=== PATIENT | female | born 1930 | race Caucasian/White ===

== ENCOUNTER 2016-10-26 17:51 | Inpatient (IN) | payer OTHER ==
[~2016-10-26] VITALS: Ht 157.5 cm; Wt 82.9 kg
[2016-10-26] MEDS ORDERED: SODIUM CHLORIDE FLUSH 10ML SYR IVF ONE (18:30)
[2016-10-26] MEDS ORDERED: CEFTRIAXONE PMX 1GM/50ML 50 ML IV ONE (18:30)
[2016-10-26] MEDS ORDERED: AMLO10TA4 PO (18:58)
[2016-10-26] MEDS ORDERED: BENA5TAB2 PO (18:58)
[2016-10-26 19:00] LABS: HEMOGLOBIN 10.1 g/dL (11.7-16.4)
[2016-10-26] MEDS ORDERED: CEFTRIAXONE PMX 1GM/50ML 50 ML ONE (19:05)
[2016-10-26 19:16] LABS: ASPARTATE AMINO TRANSFERASE 12 U/L (15-37); BLOOD UREA NITROGEN 18 mg/dL (7-18)
[2016-10-26 19:21] LABS: IS PT STATUS REG ER OR PRE ER? YES
[2016-10-26] MEDS ORDERED: OMNIPAQUE 350 MG/ML, 100ML BOTTLE ONE (19:51)
[2016-10-26] MEDS ORDERED: ALBUTEROL/IPRATROPIUM 2.5MG/0.5MG, 3 ML NPPB ONE (20:30)
[2016-10-26] MEDS ORDERED: ALBUTEROL/IPRATROPIUM 2.5MG/0.5MG, 3 ML ONE (20:36)
[2016-10-26] MEDS: DOXYCYCLINE 100 MG in DEXTROSE 5% 250 ML IV SCH (22:24)
[2016-10-26] MEDS: SODIUM CHLORIDE 0.9% 1,000 ML IV SCH (22:26)
[2016-10-26] MEDS ORDERED: DOCUSATE 100 MG CAPSULE PO PRN (22:30)
[2016-10-26] MEDS ORDERED: POLYETHYLENE GLYCOL 17 GM PACKET PO PRN (22:30)
[2016-10-26] MEDS ORDERED: BISACODYL 10 MG SUPP PR PRN (22:30)
[2016-10-26 22:50] VITALS: BP 145/66
[2016-10-26] MEDS: ACETAMINOPHEN 325 MG TABLET PO PRN (23:39)
[2016-10-27] MEDS ORDERED: SODIUM PHOSPHATE 20 MMOL in SODIUM CHLORIDE 0.9% 500 ML IV ONE (01:30)
[2016-10-27 01:44] VITALS: BP 129/79
[2016-10-27 05:08] LABS: HEMOGLOBIN 9.4 g/dL (11.7-16.4)
[2016-10-27 05:17] LABS: BLOOD UREA NITROGEN 22 mg/dL (7-18)
[2016-10-27] MEDS: HEPARIN 5,000 UNITS/ML, 1ML SQ SCH ×3 (05:32→21:57)
[2016-10-27 06:40] VITALS: BP 115/57
[2016-10-27] MEDS: AMLODIPINE 5 MG TABLET PO SCH (08:25)
[2016-10-27] MEDS ORDERED: AMLODIPINE BESYLATE 20 MG PO SCH (09:00)
[2016-10-27] MEDS ORDERED: AMLODIPINE 5 MG TABLET PO SCH (09:00)
[2016-10-27] MEDS: DOXYCYCLINE 100 MG in DEXTROSE 5% 250 ML IV SCH ×2 (10:03→21:31)
[2016-10-27 12:38] VITALS: BP 127/77
[2016-10-27] MEDS: HYDROcodone/CHLORPHENIR ORAL SUSP PO PRN (15:55)
[2016-10-27] MEDS: BENZONATATE 100 MG CAPSULE PO SCH ×2 (16:00→21:00)
[2016-10-27] MEDS: SODIUM CHLORIDE 0.9% 1,000 ML IV SCH (18:12)
[2016-10-27 18:36] VITALS: BP 110/58
[2016-10-27] MEDS ORDERED: CEFTRIAXONE PMX 1GM/50ML 50 ML IV SCH (19:00)
[2016-10-27] MEDS: CEFTRIAXONE PMX 1GM/50ML 50 ML IV SCH (19:54)
[2016-10-28 01:47] VITALS: BP 144/76
[2016-10-28 05:02] LABS: HEMOGLOBIN 9.2 g/dL (11.7-16.4)
[2016-10-28] MEDS: HEPARIN 5,000 UNITS/ML, 1ML SQ SCH ×3 (05:09→21:35)
[2016-10-28 05:24] LABS: BLOOD UREA NITROGEN 23 mg/dL (7-18)
[2016-10-28 06:52] VITALS: BP 121/71
[2016-10-28] MEDS: CEFTRIAXONE PMX 1GM/50ML 50 ML IV SCH ×2 (07:17→19:20)
[2016-10-28] MEDS: BENZONATATE 100 MG CAPSULE PO SCH ×3 (09:00→21:00)
[2016-10-28] MEDS: AMLODIPINE 5 MG TABLET PO SCH (09:54)
[2016-10-28] MEDS: GUAIFENESIN ER 600 MG TABLET PO SCH ×2 (09:54→21:35)
[2016-10-28] MEDS: DOXYCYCLINE 100 MG in DEXTROSE 5% 250 ML IV SCH ×2 (09:54→21:34)
[2016-10-28 13:34] VITALS: BP 119/66
[2016-10-28 20:07] VITALS: BP 138/75
[2016-10-28] MEDS: HYDROcodone/CHLORPHENIR ORAL SUSP PO PRN (22:13)
[2016-10-29 00:26] VITALS: BP 158/74
[2016-10-29 05:16] LABS: BLOOD UREA NITROGEN 20 mg/dL (7-18)
[2016-10-29 06:04] LABS: DIFF TOTAL CELLS COUNTED 100 CELL DIFF
[2016-10-29] MEDS: HEPARIN 5,000 UNITS/ML, 1ML SQ SCH ×3 (06:06→22:28)
[2016-10-29 06:07] LABS: VERIFY COUNTS? YES
[2016-10-29 06:41] VITALS: BP 120/69
[2016-10-29] MEDS: BENZONATATE 100 MG CAPSULE PO SCH ×3 (08:41→22:21)
[2016-10-29] MEDS: AMLODIPINE 5 MG TABLET PO SCH (08:41)
[2016-10-29] MEDS: CEFTRIAXONE PMX 1GM/50ML 50 ML IV SCH ×2 (08:41→19:39)
[2016-10-29] MEDS: GUAIFENESIN ER 600 MG TABLET PO SCH ×2 (08:41→22:21)
[2016-10-29] MEDS: DOXYCYCLINE 100 MG in DEXTROSE 5% 250 ML IV SCH ×2 (10:23→22:21)
[2016-10-29 12:56] VITALS: BP 129/70
[2016-10-29 19:33] VITALS: BP 159/59
[2016-10-29] MEDS: ACETAMINOPHEN 325 MG TABLET PO PRN (19:38)
[2016-10-30 00:35] VITALS: BP 158/84
[2016-10-30] MEDS: HEPARIN 5,000 UNITS/ML, 1ML SQ SCH ×2 (05:35→14:00)
[2016-10-30 07:14] VITALS: BP 152/75
[2016-10-30] MEDS: CEFTRIAXONE PMX 1GM/50ML 50 ML IV SCH (07:57)
[2016-10-30] MEDS: AMLODIPINE 5 MG TABLET PO SCH (07:57)
[2016-10-30] MEDS: GUAIFENESIN ER 600 MG TABLET PO SCH (07:57)
[2016-10-30] MEDS: BENZONATATE 100 MG CAPSULE PO SCH ×2 (07:57→16:00)
[2016-10-30] MEDS: DOXYCYCLINE 100 MG in DEXTROSE 5% 250 ML IV SCH (10:59)
[2016-10-30 14:00] VITALS: BP 130/72
[2016-10-30] MEDS ORDERED: CEFD300C2 PO (15:05)
[2016-10-30] MEDS ORDERED: DOXY100T PO (15:05)
== END 2016-10-30 16:50 | disposition home or self-care (01) | DRG 682 ==
LOC: ED 19:54 → EDIP 20:36 → 3NE 21:21
PROVIDERS: ADMIT Internal Medicine
DX: N17.0 Acute kidney failure with tubular necrosis (principal); J18.9 Pneumonia, unspecified organism; J96.01 Acute respiratory failure with hypoxia; D64.9 Anemia, unspecified; E83.39 Other disorders of phosphorus metabolism; I25.10 Atherosclerotic heart disease of native coronary artery without angina pectoris; K44.9 Diaphragmatic hernia without obstruction or gangrene; N28.1 Cyst of kidney, acquired; B95.7 Other staphylococcus as the cause of diseases classified elsewhere; Z80.3 Family history of malignant neoplasm of breast; Z82.49 Family history of ischemic heart disease and other diseases of the circulatory system; I12.9 Hypertensive chronic kidney disease with stage 1 through stage 4 chronic kidney disease, or unspecified chronic kidney disease; N18.2 Chronic kidney disease, stage 2 (mild)
CPT/HCPCS: 36415; 71020; 71260; 74177; 80048; 80076; 82040; 83605; 83735; 83880; 84100; 84443; 84484; 85025; 85610; 85730; 87040; 87205; 93005; 94640; 96365; J0696; J1644; J7060; Q9967; J7030; J7040

== ENCOUNTER 2018-08-29 01:24 | Inpatient (IN) | payer MEDICARE, OTHER ==
[~2018-08-29] VITALS: Ht 157.5 cm; Wt 82.9 kg
[~2018-08-29 01:24] MED LIST: AMLO10TA4 PO; BENA5TAB3 PO; CEFD300C37 PO; DOXY100T PO
[2018-08-29 02:17] LABS: BASOPHILS # (AUTO) 0.03 x10^3/uL (0-0.1); BASOPHILS % (AUTO) 1 % (0-1); EOSINOPHILS # (AUTO) 0.18 x10^3/uL (0-0.4); EOSINOPHILS % (AUTO) 4 % (1-7); LYMPHOCYTES # (AUTO) 1.55 x10^3/uL (1-3.4); LYMPHOCYTES % (AUTO) 32 % (22-44); MD NO; MEAN CORPUSCULAR HEMOGLOBIN 30.1 pg (27.0-34.8); MEAN CORPUSCULAR HGB CONC 33.4 g/dL (32.4-35.8); MEAN CORPUSCULAR VOLUME 90.1 fL (80-100); MEAN PLATELET VOLUME 8.4 fL (7.4-10.4); MONOCYTES # (AUTO) 0.61 x10^3/uL (0.2-0.8); MONOCYTES % (AUTO) 13 % (2-9); NEUTROPHILS # (AUTO) 2.43 x10^3/uL (1.8-6.8); NEUTROPHILS % (AUTO) 51 % (42-75); PLATELET COUNT 159 x10^3/uL (130-400); RED BLOOD COUNT 3.86 x10^6/uL (3.82-5.3); RED CELL DISTRIBUTION WIDTH 14.6 % (9.6-15.2)
--- NOTE | 2018-08-29 02:18 | NUR ---
PT REPORTS TONIGHT SHE FELT A SHARP PAIN IN HER RIGHT ARM AND SHE SAT DOWN ON THE GROUND. THE PAIN WENT IN BETWEEN HER SHOULDER BLADES. THE PAIN HAS NOW RESOLVED. FAMILY ALSO REPORTS THAT THE PT RECENTLY FINISHED ABX FOR A UTI. VS STABLE. 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 NSR NOTED. CALL LIGHT IN PLACE. WILL CONTINUE TO MONITOR.
[2018-08-29 02:25] LABS: MICROSCOPIC AUTO
[2018-08-29 02:28] LABS: CULTURE INDICATED? YES
[2018-08-29 02:29] LABS: ALANINE AMINOTRANSFERASE 13 U/L (12-78); ANION GAP 8 mmol/L (5-15); CALCIUM 9.1 mg/dL (8.5-10.1); CHLORIDE 111 mmol/L (98-107); CREATININE 1.63 mg/dL (0.55-1.02)
[2018-08-29 02:33] LABS: ALKALINE PHOSPHATASE 74 U/L (45-117); BILIRUBIN,TOTAL 0.3 mg/dL (0.2-1.0); TOTAL PROTEIN 7.3 g/dL (6.4-8.2); TROPONIN I 0.046 ng/mL (0.000-0.045)
--- NOTE | 2018-08-29 02:53 | NUR ---
PT VISITING WITH FAMILY AT BEDSIDE. NO ACUTE DISTRESS NOTED. CALL LIGHT IN PLACE. WILL CONTINUE TO MONITOR.
[2018-08-29] MEDS ORDERED: ASPIRIN 81 MG TABLET CHEW PO ONE (03:30)
[2018-08-29] MEDS ORDERED: CEFTRIAXONE PMX 1GM/50ML 50 ML IV ONE (03:30)
[2018-08-29] MEDS ORDERED: ASPIRIN 81 MG TABLET CHEW ONE ×2 (03:31→03:32)
--- NOTE | 2018-08-29 03:31 | NUR ---
DR FLETCHER HAS UPDATED PATIENT. PATIENT TO BE AN ADMIT
[2018-08-29] MEDS ORDERED: CEFTRIAXONE PMX 1GM/50ML 50 ML ONE (03:49)
--- NOTE | 2018-08-29 03:55 | NUR ---
NO BLOOD CULTURES NEEDED PER DR FLETCHER
[2018-08-29 04:42] VITALS: BP 158/73
[2018-08-29] MEDS ORDERED: NITROGLYCERIN 0.4 MG BOTTLE (25 TABS) SL PRN (05:00)
[2018-08-29] MEDS ORDERED: morphine SULFATE 10 MG/ML, 1ML IVPush PRN (05:00)
[2018-08-29] MEDS ORDERED: TEMAZEPAM 15 MG CAPSULE PO PRN (05:00)
[2018-08-29] MEDS ORDERED: LABETALOL 5MG/ML, 20ML IVPush PRN (05:00)
[2018-08-29] MEDS ORDERED: ACETAMINOPHEN 325 MG TABLET PO PRN (05:00)
[2018-08-29] MEDS ORDERED: ONDANSETRON ODT 4 MG PO PRN (05:00)
[2018-08-29] MEDS ORDERED: ONDANSETRON 2MG/ML, 2ML IVPush PRN (05:00)
[2018-08-29] MEDS: ASPIRIN 325 MG TABLET EC PO SCH (07:24)
[2018-08-29] MEDS ORDERED: REGADENOSON 0.4 MG/5 ML SYRINGE ONE (07:45)
[2018-08-29 08:24] VITALS: BP 148/74
[2018-08-29] MEDS ORDERED: HEPARIN 5,000 UNITS/ML, 1ML IV ONE (08:30)
[2018-08-29] MEDS ORDERED: HEPARIN 25,000 UNITS/500ML PMX 500 ML IV PRN (08:30)
[2018-08-29 08:32] VITALS: BP 148/74
[2018-08-29 08:36] LABS: CHOL/HDL RATIO 3.7; LDL/HDL RATIO 2.3 (0.5-3.0)
[2018-08-29 09:19] LABS: HEMOGLOBIN A1C 5.5 % (4.2-6.3)
[2018-08-29] MEDS: AMLODIPINE 5 MG TABLET PO SCH (10:01)
[2018-08-29] MEDS: BENAZEPRIL 20 MG TABLET PO SCH (10:01)
[2018-08-29 13:35] VITALS: BP 125/71
[2018-08-29] MEDS: HEPARIN 5,000 UNITS/ML, 1ML IV PRN (16:36)
[2018-08-29 18:27] VITALS: BP 121/78
[2018-08-29] MEDS: CARVEDILOL 3.125 MG TABLET PO SCH (18:27)
[2018-08-29 18:57] VITALS: BP 114/68
[2018-08-29] MEDS: ATORVASTATIN 40 MG TABLET PO SCH (19:55)
[2018-08-30 00:40] VITALS: BP 143/70
[2018-08-30] MEDS: CEFTRIAXONE PMX 1GM/50ML 50 ML IV SCH (04:33)
[2018-08-30 05:53] LABS: CHOL/HDL RATIO 3.3
[2018-08-30] MEDS: HEPARIN 5,000 UNITS/ML, 1ML IV PRN (06:42)
[2018-08-30] MEDS: CARVEDILOL 3.125 MG TABLET PO SCH ×2 (06:43→18:36)
[2018-08-30] MEDS: ASPIRIN 325 MG TABLET EC PO SCH (06:43)
[2018-08-30 07:00] VITALS: BP 153/78
[2018-08-30] MEDS: AMLODIPINE 5 MG TABLET PO SCH (08:14)
[2018-08-30] MEDS: BENAZEPRIL 20 MG TABLET PO SCH (08:15)
[2018-08-30] MEDS ORDERED: REGADENOSON 0.4 MG/5 ML SYRINGE ONE (08:52)
[2018-08-30] MEDS: CLOPIDOGREL 75 MG TABLET PO SCH (13:42)
[2018-08-30 15:44] VITALS: BP 107/58
[2018-08-30 15:46] VITALS: BP 119/69
[2018-08-30 15:48] VITALS: BP 123/78
[2018-08-30 20:15] VITALS: BP 136/75
[2018-08-30] MEDS: ATORVASTATIN 40 MG TABLET PO SCH (20:51)
[2018-08-31 01:26] VITALS: BP 125/73
[2018-08-31] MEDS: CEFTRIAXONE PMX 1GM/50ML 50 ML IV SCH (03:43)
[2018-08-31] MEDS: ASPIRIN 81 MG TABLET EC PO SCH (05:18)
[2018-08-31] MEDS: CARVEDILOL 3.125 MG TABLET PO SCH ×2 (05:21→16:06)
[2018-08-31 08:01] VITALS: BP 122/69
[2018-08-31] MEDS ORDERED: BENAZEPRIL 10 MG TABLET ONE (08:12)
[2018-08-31] MEDS: CLOPIDOGREL 75 MG TABLET PO SCH (08:14)
[2018-08-31] MEDS: BENAZEPRIL 20 MG TABLET PO SCH (08:14)
[2018-08-31] MEDS: AMLODIPINE 5 MG TABLET PO SCH ×3 (08:14→20:04)
[2018-08-31 08:46] VITALS: BP 149/87
[2018-08-31] MEDS ORDERED: SODIUM CHLORIDE 0.9% 1,000 ML IV SCH (11:00)
[2018-08-31 12:19] LABS: ANION GAP 7 mmol/L (5-15); CALCIUM 9.1 mg/dL (8.5-10.1); CHLORIDE 111 mmol/L (98-107)
[2018-08-31 12:24] LABS: CREATININE 1.34 mg/dL (0.55-1.02); TROPONIN I 0.624 ng/mL (0.000-0.045)
[2018-08-31] MEDS ORDERED: FENTANYL PF 100 MCG/2ML ONE (14:14)
[2018-08-31] MEDS ORDERED: MIDAZOLAM 1 MG/ML, 2ML ONE (14:14)
[2018-08-31] MEDS ORDERED: LIDOCAINE 1%, 20ML ONE (14:15)
[2018-08-31] MEDS ORDERED: VERAPAMIL 2.5 MG/ML, 2ML ONE (14:15)
[2018-08-31 15:04] VITALS: BP 122/71
[2018-08-31] MEDS: SODIUM CHLORIDE 0.9% 1,000 ML IV SCH ×2 (15:33→20:04)
[2018-08-31 20:01] VITALS: BP 144/69
[2018-08-31] MEDS: ATORVASTATIN 40 MG TABLET PO SCH (20:04)
[2018-09-01 01:50] VITALS: BP 110/56
[2018-09-01 01:52] VITALS: BP 131/76
[2018-09-01 01:54] VITALS: BP 137/85
[2018-09-01] MEDS: CEFTRIAXONE PMX 1GM/50ML 50 ML IV SCH (03:30)
[2018-09-01 04:44] LABS: CHLORIDE 113 mmol/L (98-107)
[2018-09-01 04:48] LABS: ANION GAP 8 mmol/L (5-15); CALCIUM 8.4 mg/dL (8.5-10.1); CREATININE 1.43 mg/dL (0.55-1.02)
[2018-09-01] MEDS: ASPIRIN 81 MG TABLET EC PO SCH (06:11)
[2018-09-01] MEDS: CARVEDILOL 3.125 MG TABLET PO SCH (06:11)
[2018-09-01 08:44] VITALS: BP 145/85
[2018-09-01] MEDS ORDERED: SULFAMETH./TRIMETHOPRIM DS 800MG/160MG TABLET PO SCH (09:00)
[2018-09-01] MEDS: AMLODIPINE 5 MG TABLET PO SCH (09:30)
[2018-09-01] MEDS: CLOPIDOGREL 75 MG TABLET PO SCH (09:31)
[2018-09-01] MEDS: BENAZEPRIL 20 MG TABLET PO SCH (09:32)
[2018-09-01] MEDS ORDERED: CARV3.1212 PO (13:06)
[2018-09-01] MEDS ORDERED: ASPI81TA45 PO (13:06)
[2018-09-01] MEDS ORDERED: AMLO-150 PO (13:06)
[2018-09-01] MEDS ORDERED: NITR0.4T SL (13:06)
[2018-09-01] MEDS ORDERED: SULF-169 PO (13:08)
[2018-09-01] MEDS ORDERED: ATOR40TA78 PO (13:08)
[2018-09-01] MEDS ORDERED: CLOP75TA PO (13:08)
[2018-09-01 13:29] VITALS: BP 141/83
== END 2018-09-01 14:49 | disposition home or self-care (01) | DRG 280 ==
LOC: ED 02:27 → EDIP 03:40 → 5SO 04:22 → DCLOUNGE 09-01 14:48
PROVIDERS: ADMIT Internal Medicine; ATTEND Internal Medicine
PROC: 4A023N7 Measurement of Cardiac Sampling and Pressure, Left Heart, Percutaneous Approach (ICD-10-PCS; principal; 2018-08-31)
PROC: B2111ZZ Fluoroscopy of Multiple Coronary Arteries using Low Osmolar Contrast (ICD-10-PCS; 2018-08-31)
DX: I21.4 Non-ST elevation (NSTEMI) myocardial infarction (principal); N17.0 Acute kidney failure with tubular necrosis; N39.0 Urinary tract infection, site not specified; I82.611 Acute embolism and thrombosis of superficial veins of right upper extremity; B96.20 Unspecified Escherichia coli [E. coli] as the cause of diseases classified elsewhere; D64.9 Anemia, unspecified; I13.10 Hypertensive heart and chronic kidney disease without heart failure, with stage 1 through stage 4 chronic kidney disease, or unspecified chronic kidney disease; K44.9 Diaphragmatic hernia without obstruction or gangrene; Z87.891 Personal history of nicotine dependence; R55 Syncope and collapse
CPT/HCPCS: 36415; 71045; 78452; 80048; 80053; 80061; 81001; 83036; 84484; 85025; 85520; 87077; 87086; 87186; 90656; 93005; 93017; 93306; 93458; 96374; 99156; 99285; C1760; C1769; C1894; G0378; J0696; J1644; J2250; J2785; J3010; J3490; A9502; C9898; J7030; Q9967

== ENCOUNTER → 2019-08-01 | Outpatient (CLI) | payer MEDICARE ==
[~2019-08-01] MED LIST changes: +AMLO-150 PO; +ASPI81TA45 PO; +ATOR40TA78 PO; +CARV3.1212 PO; +CLOP75TA PO; +NITR0.4T41 SL; +SULF-169 PO
== END | disposition home or self-care (01) ==
LOC: RAD 08:54
PROVIDERS: ATTEND Nurse Practitioner Family
DX: K76.0 Fatty (change of) liver, not elsewhere classified (principal); N28.1 Cyst of kidney, acquired
CPT/HCPCS: 76700

== ENCOUNTER 2019-08-09 13:16 | Outpatient (CLI) | payer MEDICARE ==
[2019-08-09] MEDS ORDERED: MELA1TAB15 PO (17:58)
[2019-08-09] MEDS ORDERED: HYDR-3240 PO (17:58)
[2019-08-09] MEDS ORDERED: AMLO-150 PO (17:58)
== END 2019-08-09 23:59 | disposition home or self-care (01) ==
LOC: CFH 13:16
PROVIDERS: ATTEND Nurse Practitioner Family
DX: N18.9 Chronic kidney disease, unspecified (principal); R74.8 Abnormal levels of other serum enzymes; R94.5 Abnormal results of liver function studies; R11.0 Nausea; R19.7 Diarrhea, unspecified; R63.4 Abnormal weight loss
CPT/HCPCS: 74176

== ENCOUNTER 2019-08-09 13:56 | Inpatient (IN) | payer MEDICARE ==
[~2019-08-09] VITALS: Ht 157.5 cm; Wt 74.2 kg
[2019-08-09 15:52] LABS: CULTURE INDICATED? NO; MICROSCOPIC NOT IND
[2019-08-09] MEDS ORDERED: SODIUM CHLORIDE 0.9% 1,000 ML IV ONE (16:06)
--- NOTE | 2019-08-09 16:36 | NUR ---
Piv placed with one attempt by this RN.
[2019-08-09 16:37] LABS: MEAN CORPUSCULAR HEMOGLOBIN 28.3 pg (27.0-34.8); MEAN CORPUSCULAR HGB CONC 32.6 g/dL (32.4-35.8); MEAN CORPUSCULAR VOLUME 86.7 fL (80-100); PLATELET COUNT 368 x10^3/uL (130-400)
[2019-08-09 16:48] LABS: ALANINE AMINOTRANSFERASE 27 U/L (12-78); ALBUMIN 2.7 g/dL (3.4-5.0); ANION GAP 8 mmol/L (5-15); CALCIUM 8.9 mg/dL (8.5-10.1); CHLORIDE 106 mmol/L (98-107); CREATININE 1.35 mg/dL (0.55-1.02)
[2019-08-09 16:50] LABS: ALKALINE PHOSPHATASE 555 U/L (45-117)
[2019-08-09] MEDS ORDERED: ACETAMINOPHEN 325 MG TABLET PO PRN (17:00)
[2019-08-09] MEDS ORDERED: hydrALAzine 20 MG/ML, 1ML IVPush PRN (17:00)
[2019-08-09] MEDS ORDERED: NITROGLYCERIN SINGLE TAB 0.4 MG SL PRN (17:00)
[2019-08-09] MEDS ORDERED: morphine SULFATE 10 MG/ML, 1ML IVPush PRN (17:00)
[2019-08-09] MEDS ORDERED: ONDANSETRON 2MG/ML, 2ML IVPush PRN (17:00)
[2019-08-09] MEDS ORDERED: ONDANSETRON ODT 4 MG PO PRN (17:00)
--- NOTE | 2019-08-09 17:05 | NUR ---
DR. VUONG, , HERE TO SEE PATIENT.
[2019-08-09 17:25] LABS: MD YES
[2019-08-09 17:27] LABS: LYMPH#(MANUAL) 1.56 x10^3/uL (1-3.4); LYMPHS% (MANUAL) 13 % (22-44); MONOS#(MANUAL) 1.08 x10^3/uL (0.3-2.7); MONOS% (MANUAL) 9 % (2-9); SEG#(MANUAL) 9.36 x10^3/uL (1.8-6.8); SEGS% (MANUAL) 78 % (42-75)
[2019-08-09 17:32] LABS: ANISOCYTOSIS 1+; HYPOCHROMIA 1+; OVALOCYTES 2+; POLYCHROMASIA 1+
[2019-08-09 17:33] LABS: HYPERSEG PMNs 1+
[2019-08-09 17:37] LABS: <PLATELET ESTIMATE> ADEQUATE; <PLT MORPHOLOGY> NORMAL PLT MORPH
[2019-08-09] MEDS ORDERED: MELA1TAB15 PO (17:58)
[2019-08-09] MEDS ORDERED: HYDR-3240 PO (17:58)
[2019-08-09] MEDS ORDERED: AMLO-150 PO (17:58)
[2019-08-09] MEDS: CARVEDILOL 3.125 MG TABLET PO SCH (18:47)
--- NOTE | 2019-08-09 19:29 | NUR ---
REPORT FROM KAMILLE BOYD. VSS. UPDATED FAMILY ON POC. BED RECEIVED. CALL MARCIAL IN REACH.
[2019-08-09 20:00] VITALS: BP 140/72
--- NOTE | 2019-08-09 20:02 | NUR ---
REPROT TO BERNIE RN ON ONC.
[2019-08-09 20:30] VITALS: BP 148/74
[2019-08-09] MEDS: AMLODIPINE 5 MG TABLET PO SCH (21:00)
[2019-08-09] MEDS: ATORVASTATIN 40 MG TABLET PO SCH (21:22)
[2019-08-10] VITALS: BP 169/75
[2019-08-10 05:13] LABS: ANION GAP 8 mmol/L (5-15); CALCIUM 8.4 mg/dL (8.5-10.1); CHLORIDE 106 mmol/L (98-107); CREATININE 1.17 mg/dL (0.55-1.02)
[2019-08-10 05:25] LABS: MEAN CORPUSCULAR HEMOGLOBIN 28.2 pg (27.0-34.8); MEAN CORPUSCULAR HGB CONC 32.7 g/dL (32.4-35.8); MEAN CORPUSCULAR VOLUME 86.4 fL (80-100); MEAN PLATELET VOLUME 8.4 fL (7.4-10.4); PLATELET COUNT 357 x10^3/uL (130-400); RED CELL DISTRIBUTION WIDTH 17.4 % (9.6-15.2)
[2019-08-10 05:52] LABS: MD YES
[2019-08-10 05:53] LABS: ANISOCYTOSIS 1+; EOS#(MANUAL) 0.11 x10^3/uL (0.0-0.4); EOS% (MANUAL) 1 % (1-7); LYMPH#(MANUAL) 1.31 x10^3/uL (1-3.4); LYMPHS% (MANUAL) 12 % (22-44); MONOS#(MANUAL) 1.42 x10^3/uL (0.3-2.7); MONOS% (MANUAL) 13 % (2-9); OVALOCYTES 2+; SEG#(MANUAL) 8.07 x10^3/uL (1.8-6.8); SEGS% (MANUAL) 74 % (42-75)
[2019-08-10 05:55] LABS: ACANTHOCYTES 1+
[2019-08-10 05:57] LABS: SCHISTOCYTES 1+
[2019-08-10 05:58] LABS: <PLATELET ESTIMATE> ADEQUATE; <PLT MORPHOLOGY> NORMAL PLT MORPH; HYPOCHROMIA 1+; POLYCHROMASIA 1+
[2019-08-10] MEDS: CARVEDILOL 3.125 MG TABLET PO SCH ×2 (06:00→18:02)
[2019-08-10] MEDS: ASPIRIN 81 MG TABLET EC PO SCH (06:02)
[2019-08-10] MEDS: BENAZEPRIL 20 MG TABLET PO SCH (07:50)
[2019-08-10] MEDS: AMLODIPINE 5 MG TABLET PO SCH (07:50)
[2019-08-10] MEDS ORDERED: ACETAMINOPHEN 325 MG TABLET PO PRN (08:00)
[2019-08-10 08:33] VITALS: BP 113/69
[2019-08-10] MEDS ORDERED: MOVIPREP POWDER 1 PREP KIT PO SCH (09:00)
[2019-08-10] MEDS: SODIUM CHLORIDE 0.9% 1,000 ML IV SCH (09:25)
[2019-08-10] MEDS ORDERED: MOVIPREP POWDER 1 PREP KIT PO ONE ×2 (12:30→21:00)
[2019-08-10 14:09] VITALS: BP 120/71
[2019-08-10 19:05] VITALS: BP 103/53
[2019-08-10] MEDS: ATORVASTATIN 40 MG TABLET PO SCH (20:52)
[2019-08-11 01:39] VITALS: BP 115/73
[2019-08-11] MEDS: ASPIRIN 81 MG TABLET EC PO SCH (06:00)
[2019-08-11] MEDS: CARVEDILOL 3.125 MG TABLET PO SCH (06:06)
[2019-08-11 06:26] VITALS: BP 117/63
[2019-08-11] MEDS: SODIUM CHLORIDE 0.9% 1,000 ML IV SCH (08:13)
[2019-08-11] MEDS: BENAZEPRIL 20 MG TABLET PO SCH (08:14)
[2019-08-11] MEDS ORDERED: PROPOFOL 10 MG/ML, 20ML ONE (09:48)
[2019-08-11] MEDS ORDERED: ALBUTEROL SULFATE 2.5 MG/3 ML NPPB PRN (10:00)
[2019-08-11] MEDS ORDERED: LABETALOL 5MG/ML, 20ML IV PRN (10:00)
[2019-08-11] MEDS ORDERED: OXYcodone 5 MG/5 ML ORAL.SOL UDC PO PRN (10:00)
[2019-08-11] MEDS ORDERED: PROMETHAZINE 25 MG/ML, 1ML IV PRN (10:00)
[2019-08-11] MEDS ORDERED: HYDROmorphone 2 MG/ML, 1ML IVPush PRN (10:00)
[2019-08-11] MEDS ORDERED: hydrALAzine 20 MG/ML, 1ML IV PRN (10:00)
[2019-08-11] MEDS ORDERED: HALOPERIDOL 5 MG/ML IV PRN (10:00)
[2019-08-11] MEDS ORDERED: FENTANYL PF 100 MCG/2ML IV PRN (10:00)
[2019-08-11 12:23] LABS: % IRON SATURATION 8 % (20-55); ALANINE AMINOTRANSFERASE 26 U/L (12-78); ALBUMIN 2.4 g/dL (3.4-5.0); ANION GAP 8 mmol/L (5-15); CALCIUM 8.6 mg/dL (8.5-10.1); CHLORIDE 112 mmol/L (98-107); CREATININE 1.42 mg/dL (0.55-1.02); IRON LEVEL 18 mcg/dL (50-170); TOTAL IRON BINDING CAPACITY 215 mcg/dL (250-450)
[2019-08-11 12:26] LABS: ALKALINE PHOSPHATASE 536 U/L (45-117); BILIRUBIN,TOTAL 0.5 mg/dL (0.2-1.0); TOTAL PROTEIN 6.6 g/dL (6.4-8.2)
[2019-08-11 15:05] VITALS: BP 120/67
[2019-08-11] MEDS ORDERED: FERROUS SULFATE 325 MG TABLET PO SCH (16:30)
[2019-08-11] MEDS: CARVEDILOL 6.25 MG TABLET PO SCH (18:30)
[2019-08-11 20:05] VITALS: BP 122/60
[2019-08-11] MEDS: ATORVASTATIN 40 MG TABLET PO SCH (22:02)
[2019-08-12 00:50] VITALS: BP 115/70
[2019-08-12] MEDS: CARVEDILOL 6.25 MG TABLET PO SCH (05:20)
[2019-08-12] MEDS: ASPIRIN 81 MG TABLET EC PO SCH (05:20)
[2019-08-12] MEDS: SODIUM CHLORIDE 0.9% 1,000 ML IV SCH (05:21)
[2019-08-12 07:40] VITALS: BP 111/69
[2019-08-12] MEDS: BENAZEPRIL 20 MG TABLET PO SCH (08:58)
[2019-08-12] MEDS ORDERED: FERR-51 PO (11:16)
[2019-08-12] MEDS ORDERED: CARV6.2512 PO (11:16)
== END 2019-08-12 13:11 | disposition hospice, home (50) | DRG 374 ==
LOC: SUATTDRO 16:29 → OR 16:42 → EDIP 16:43 → OR 16:51 → 4NW 20:19
PROVIDERS: ADMIT Hospitalist; ATTEND Internal Medicine
PROC: 0DBL8ZX Excision of Transverse Colon, Via Natural or Artificial Opening Endoscopic, Diagnostic (ICD-10-PCS; principal; 2019-08-11 10:00)
DX: C18.3 Malignant neoplasm of hepatic flexure (principal); N18.6 End stage renal disease; E46 Unspecified protein-calorie malnutrition; I12.0 Hypertensive chronic kidney disease with stage 5 chronic kidney disease or end stage renal disease; D64.9 Anemia, unspecified; I44.7 Left bundle-branch block, unspecified; K63.5 Polyp of colon; E87.6 Hypokalemia; I25.10 Atherosclerotic heart disease of native coronary artery without angina pectoris; K57.30 Diverticulosis of large intestine without perforation or abscess without bleeding; K64.8 Other hemorrhoids; D50.9 Iron deficiency anemia, unspecified; Z68.29 Body mass index [BMI] 29.0-29.9, adult; I25.2 Old myocardial infarction; Z98.61 Coronary angioplasty status
CPT/HCPCS: 36415; 71046; 71250; 76700; 80048; 80053; 81003; 82378; 83540; 83550; 83690; 85025; 86301; 88104; 88305; 88333; 93005; 99285; G0378; J2405; J2704; Q0162; J7030